=== PATIENT | male | born 1955 | race African-American/Black ===

== ENCOUNTER 2024-03-09 18:32 | Emergency (ER) | payer OTHER, MEDICARE ==
[~2024-03-09] VITALS: Ht 198.1 cm; Wt 107.0 kg
[~2024-03-09 18:32] MED LIST: BUME1TAB8 PO; BUPR-553 PO; CARV25TA47 PO; CLON1PAT12 TD; DIGO250T PO; FINA5TAB11 PO; RIVA20TA PO; SILD100T69 PO; TAMS-11 PO
[2024-03-09 18:44] VITALS: TEMP 98.1; O2SAT 98
[2024-03-09] MEDS: HYDROCODONE/ACETAMINOPHEN 7.5/325MG TABLET PO ONE (20:17)
[2024-03-09 20:22] LABS: BASOPHILS % 0.4 % (0.0-2.0); DIFFERENTIAL COMMENT 0; EOSINOPHILS % 0.6 % (0.0-5.0); HEMATOCRIT. 31.3 % (42.0-52.0); HEMOGLOBIN. 10.2 g/dL (14.0-18.0); LYMPHOCYTES % 9.7 % (20.0-50.0); MEAN CORPUSCULAR HEMOGLOBIN 35.7 pg (28.0-32.0); MEAN CORPUSCULAR HGB CONC 32.5 g/dL (31.0-37.0); MEAN CORPUSCULAR VOLUME 109.9 fL (80.0-94.0); MEAN PLATELET VOLUME 8.4 fl (7.4-10.4); MONOCYTES % 10.2 % (2.0-8.0); NEUTROPHILS % 79.1 % (40.0-76.0); PLATELET 142 x1000/uL (130-400); RED BLOOD CELL COUNT 2.84 mill/uL (4.7-6.1); RED CELL DISTRIBUTION WIDTH 15.8 % (11.6-14.6); WHITE BLOOD COUNT 5.3 x1000/uL (4.5-11.0)
[2024-03-09 20:29] LABS: CHLORIDE 108 mEq/L (98-107); POTASSIUM 4.1 mEq/L (3.5-5.1); SODIUM 138 mEq/L (136-145)
[2024-03-09 20:30] LABS: CALCIUM 8.8 mg/dL (8.7-10.4); CARBON DIOXIDE 23 mEq/L (21-32)
[2024-03-09 20:35] LABS: CREATININE 1.2 mg/dL (0.6-1.3); GLUCOSE 122 mg/dL (70-105); UREA NITROGEN BLOOD 17 mg/dL (9-23)
[2024-03-09 20:37] LABS: ALANINE AMINOTRANSFERASE 13 IU/L (10-49); ALBUMIN 3.4 g/dL (3.2-4.8); ASPARTATE AMINOTRANSFERASE 24 IU/L (<34); BILIRUBIN TOTAL 0.5 mg/dL (0.1-1.0)
[2024-03-10 01:02] VITALS: BP 109/56; PULSE 84; RESP 18; O2SAT 100
== END 2024-03-10 01:25 | disposition short-term general hospital (02) ==
LOC: ER 18:32 → EDBEDREQ 21:01 → EDBEDREQTM 21:01 → ER 03-10 01:25
DX: S72.001A Fracture of unspecified part of neck of right femur, initial encounter for closed fracture (principal); S82.831A Other fracture of upper and lower end of right fibula, initial encounter for closed fracture; J44.9 Chronic obstructive pulmonary disease, unspecified; I10 Essential (primary) hypertension; Z79.899 Other long term (current) drug therapy; Z96.651 Presence of right artificial knee joint; M17.12 Unilateral primary osteoarthritis, left knee; W18.39XA Other fall on same level, initial encounter; Y93.89 Activity, other specified; Y92.89 Other specified places as the place of occurrence of the external cause; Y99.8 Other external cause status
CPT/HCPCS: 80053; 85025; 36415; 73562; 29505; 99285; Z7610